=== PATIENT | female | born 1960 | race Caucasian/White ===

== ENCOUNTER 2017-10-05 19:17 | Emergency (ER) | payer MEDICAID, OTHER ==
[2017-10-05 20:15] VITALS: BP 121/86; PULSE 84; RESP 20; TEMP 98.1; O2SAT 98
[2017-10-05] MEDS ORDERED: Albuterol-Ipratrop 3 mg / 0.5 (3 ml) UD INH STA (20:55)
--- NOTE | 2017-10-05 21:08 | C.PDOC ---
History Of Present Illness 57 year old female presents to ED with complaints of fever, chills, cough and malaise for one week. Patient reports chest tightness since last night and worsening cough, but non-productive. She has not taken any OTC medications. Time Seen by Provider: 10/05/17 20:40 Chief Complaint (Nursing): Cough, Cold, Congestion History Per: Patient History/Exam Limitations: no limitations Onset/Duration Of Symptoms: Other (1 week) Current Symptoms Are (Timing): Still Present Associated Symptoms: Cough Past Medical History Reviewed: Historical Data, Nursing Documentation, Vital Signs Vital Signs: Last Vital Signs Temp 98.1 F 10/05/17 20:10 Pulse 84 10/05/17 20:10 Resp 20 10/05/17 22:10 BP 121/86 10/05/17 20:10 Pulse Ox 98 10/05/17 21:46 - Medical History PMH: Back Problems, Hypercholesterolemia Surgical History: No Surg Hx Family History: States: Unknown Family Hx - Social History Hx Tobacco Use: No Hx Alcohol Use: No Hx Substance Use: No - Immunization History Hx Influenza Vaccination: Yes (not sure) Hx Pneumococcal Vaccination: No Review Of Systems Constitutional: Positive for: Fever Eyes: Negative for: Redness ENT: Positive for: Nose Congestion. Negative for: Ear Pain Cardiovascular: Positive for: Chest Pain Respiratory: Positive for: Cough. Negative for: Sputum, Wheezing Gastrointestinal: Negative for: Vomiting, Abdominal Pain, Diarrhea Musculoskeletal: Negative for: Back Pain Skin: Negative for: Rash Neurological: Negative for: Headache, Dizziness Physical Exam - Physical Exam Appears: Non-toxic, No Acute Distress Skin: Warm, Dry, No Diaphoretic, No Pale, No Rash Head: Atraumatic, Normacephalic Eye(s): bilateral: Normal Inspection, EOMI Ear(s): Bilateral: Normal (no erythema) Nose: Normal, No Flaring Oral Mucosa: Moist Throat: Normal, No Erythema, No Exudate, No Drooling, No Mass Neck: Normal ROM Chest: Symmetrical, No Tenderness Cardiovascular: Rhythm Regular, No Murmur Respiratory: No Accessory Muscle Use, No Rhonchi, Wheezing (mild expiratory wheeze) Extremity: Bilateral: Atraumatic, Normal Color And Temperature, Normal ROM Neurological/Psych: Oriented x3, Normal Speech ED Course And Treatment O2 Sat by Pulse Oximetry: 98 Medical Decision Making Medical Decision Making: Patient with multi-symptom complaints for one week and not improving. Patient has no fever on arrival to ED, is actively coughing and has mild wheeze. Order CXR and duoneb. Xray viewed by me showing normal cardiac silhouette, no infiltrate, pleural effusion or pneumothorax. Patient remained afebrile and in no distress. Rx given. Patient advised to rest, drink fluids and take medications . Patient stable for discharge and given follow up instructions. Disposition Counseled Patient/Family Regarding: Diagnosis, Need For Followup, Rx Given - Disposition Referrals: [facility] [Outside] [facility]. [facility] [Outside] Disposition: HOME/ ROUTINE Disposition Time: 21:42 Condition: STABLE Additional Instructions: [place] antibiticos diariamente segn lo prescrito [place] medicamento para la tos segn sea necesario Pawel un seguimiento con perry mdico o clnica en 3-4 gutierrez para obtener ms atenci n Take antibiotic daily as prescribed Take cough medicine as needed follow up with your doctor or clinic in 3-4 days for more care Prescriptions: Benzonatate [Tessalon Perles] 100 mg PO TID #30 sgl levoFLOXacin [Levaquin] 750 mg PO DAILY #7 tab Instructions: Acute Bronchitis Forms: [facility] (Pakistani), Work Excuse Print Language: CHILEAN - POA Present On Arrival: None - Clinical Impression Clinical Impression: Bronchitis
[2017-10-05] MEDS ORDERED: Albuterol 0.083% Inhal Sol (2.5 mg/3 mL) UD ONE (21:15)
--- NOTE | 2017-10-06 08:47 | RAD ---
HISTORY: cough COMPARISON: 04/04/2017 TECHNIQUE: Chest PA and lateral FINDINGS: LUNGS: No active pulmonary disease. PLEURA: No significant pleural effusion identified. No pneumothorax apparent. CARDIOVASCULAR: Normal. OSSEOUS STRUCTURES: No significant abnormalities. VISUALIZED UPPER ABDOMEN: Normal. OTHER FINDINGS: None. IMPRESSION: No active disease.
== END 2017-10-05 22:24 | disposition home or self-care (01) ==
LOC: C.ER 19:17
DX: J40 Bronchitis, not specified as acute or chronic (principal)